=== PATIENT | female | born 2005 | race Caucasian/White ===

== ENCOUNTER 2024-07-06 20:12 | Emergency (ER) | payer BC, SELFPAY ==
[2024-07-06 20:17] VITALS: BP 135/81; PULSE 129; RESP 16; TEMP 36.7; O2SAT 100
--- NOTE | 2024-07-06 21:23 | ED.LOWEXIN ---
HPI - Extremity Injury (Lower) General Chief Complaint: Extremity Injury, Lower Stated Complaint: right foot injury Time Seen by Provider: 07/06/24 21:13 Source: patient Mode of arrival: ambulatory Limitations: no limitations History of Present Illness HPI Narrative: This is a 19-year-old female that presents to the emergency department for right foot pain. Reports she accidentally twisted her foot when she was getting up. Reports swelling and pain to the lateral foot. Denies decreased range of motion or numbness. Related Data Allergies Allergy/AdvReac Type Severity Reaction Status Date / Time cefprozil (From Cefzil) Allergy Intermediate Rash Verified 07/06/24 21:15 amoxicillin (From Augmentin) Allergy Mild Rash Verified 07/06/24 21:15 clavulanic acid (From Allergy Mild Rash Verified 07/06/24 21:15 Augmentin) Review of Systems Review of Systems: CONSTITUTIONAL: Denies fever MUSCULOSKELETAL: Reports joint pain, and myalgia. NEUROLOGIC: Denies numbness All systems reviewed & are unremarkable except as noted in HPI and below PMFSH Past Medical History Medical History (Updated 07/06/24 @ 21:43 by Lilian Garcia PA-C) No active medical problems Social History Social History (Updated 07/06/24 @ 21:24 by Lilian Garcia PA-C) Smoking status: Never smoker Exam Narrative: GENERAL: Well-appearing, well-nourished, and in no acute distress. HEAD: Normocephalic, atraumatic. EYES: EOMI. EXTREMITIES: Normal range of motion. No edema or obvious deformity. Normal DP pulse. Normal sensation SKIN: Warm, dry, no rash. NEURO: No focal deficits. Alert and oriented x3. PSYCH: Normal mood and affect Course Vital Signs Vital signs: Vital Signs Temperature 98.1 F 07/06/24 20:17 Pulse Rate 129 H 07/06/24 20:17 Respiratory Rate 16 07/06/24 20:17 Blood Pressure 135/81 07/06/24 20:17 Pulse Oximetry 100 07/06/24 20:17 Oxygen Delivery Room Air 07/06/24 20:17 Temperature 98.1 F 07/06/24 20:17 Pulse Rate 129 H 07/06/24 20:17 Respiratory Rate 16 07/06/24 20:17 Blood Pressure 135/81 07/06/24 20:17 Pulse Oximetry 100 07/06/24 20:17 Oxygen Delivery Room Air 07/06/24 20:17 MDM - Extremity Injury (Lower) MDM Narrative Medical decision making narrative: Patient presents to the emergency department for right foot injury. Foot x-ray without acute osseous abnormalities. Patient is neurovascularly intact. Foot x-ray without acute osseous abnormalities. Placed in Miah wrap and given crutches. She is to follow up with primary provider. She was given warnings to return to the ER Differential Diagnosis Differential diagnosis: Likely ankle sprain and strain, ankle fracture and other (foot fracture, foot sprain) Imaging Data Radiologist's impression: ITS Impressions Foot X-Ray 07/06/24 21:29 IMPRESSION: No acute osseous abnormality of the right foot. Critical Care Time Critical Care Time Critical Care Time: No Discharge Plan Discharge Clinical Impression: Foot sprain Qualifiers: Encounter type: initial encounter Laterality: right Qualified Code(s): S93.601A - Unspecified sprain of right foot, initial encounter Patient Disposition: Home, Self-Care Condition: Stable Instructions: Foot Sprain (ED) Additional Instructions: Return to the ER if you experience fever, redness and swelling of your extremity, numbness or any other symptoms that are concerning to you Wear MIAH wrap and use crutches. No weight on the affected leg until able to bear weight without pain. Ice and elevate extremity. Pain medication as needed and directed. Follow up with your doctor for further care. Patient Language: Latvian Follow-up/Referrals: PHYSICIAN NOT ON STAFF,NONSTAFF [Primary Care Provider] -
[2024-07-06 21:52] VITALS: PULSE 123; RESP 17; O2SAT 99
== END 2024-07-06 22:09 | disposition home or self-care (01) ==
PROVIDERS: Emergency Provider Physician Assistant
DX: S93.601A Unspecified sprain of right foot, initial encounter (principal); X50.9XXA Other and unspecified overexertion or strenuous movements or postures, initial encounter
CPT/HCPCS: 73620; 99283